=== PATIENT | female | born 1995 | race Caucasian/White ===

== ENCOUNTER 2016-10-21 11:39 | Emergency (ER) | payer OTHER ==
[2016-10-21 11:42] VITALS: TEMP 98.2; BMI 22.8
[2016-10-21 12:45] LABS: BASOPHIL 0.4 % (0-2.0); EOSINOPHIL 0.4 % (0-4.5); MCHC 34.9 g/dl (32.0-36.0); MEAN CELL VOLUME 91.8 fl (80-96); MEAN PLT VOLUME 7.8 fl (7.5-11.1); NEUTROPHILS 77.7 % (42.8-82.8); PLATELET COUNT 197 K/MM3 (134-434); WHITE BLOOD COUNT 8.7 K/mm3 (4.0-10.0)
[2016-10-21 12:47] LABS: URINE APPEARANCE CLEAR; URINE BILIRUBIN NEGATIVE (NEGATIVE); URINE BLOOD NEGATIVE (NEGATIVE); URINE COLOR YELLOW; URINE GLUCOSE (UA) NEGATIVE (NEGATIVE); URINE KETONE NEGATIVE (NEGATIVE); URINE NITRITE NEGATIVE (NEGATIVE); URINE PROTEIN NEGATIVE (NEGATIVE); URINE UROBILINOGEN NEGATIVE E.U./dl (0.2-1.0)
--- NOTE | 2016-10-21 12:53 | PDOC ---
History of Present Illness - General History Source: Patient Exam Limitations: No Limitations - History of Present Illness Initial Comments: CHIEF COMPLAINT: 21 y/o , approximately 18 week female with LMP of 06/15/16 c/o left sided abdominal pain x 3 days. HISTORY OF PRESENT ILLNESS: The patient describes the pain as constant. She denies f/c, n/v/d, CP, SOB, back pain, hematuria, dysuria, abnormal vaginal discharge, vaginal bleeding. UNDERWRITER SOLICITATION DIRECTOR is Dr. Karina Ovalles Vital signs on arrival are within normal limits. REVIEW OF SYSTEMS: GENERAL/CONSTITUTIONAL: No fever/chills. No weakness. No weight change. HEAD, EYES, EARS, NOSE AND THROAT: No change in vision. No ear pain or discharge. No sore throat. CARDIOVASCULAR: No chest pain or shortness of breath. RESPIRATORY: No cough, wheezing, or hemoptysis. GASTROINTESTINAL: +left sided abdominal pain. No nausea, vomiting, diarrhea. GENITOURINARY: No dysuria, frequency, or change in urination. MUSCULOSKELETAL: No joint or muscle swelling or pain. No neck or back pain. SKIN: No rash or easy bruising. NEUROLOGIC: No headache, vertigo, loss of consciousness, or loss of sensation. PHYSICAL EXAM: GENERAL: The patient is awake, alert, and fully oriented, in no acute distress. She is well appearing and ambulatory, in NAD or obvious discomfort. HEAD: Normal with no signs of trauma. ENT: Pupils equal, round and reactive to light, extraocular movements intact, sclera anicteric, conjunctiva clear. Neck supple. LUNGS: Clear to auscultation bilaterally. Normal excursion. No respiratory distress or use of accessory muscles. CV: RRR, S1/S2, no MRG. Cap refill < 2 sec. ABDOMEN: Soft, non-distended. TTP of left flank. No rebound, guarding or rigidity. BACK: No CVA TTP b/l. VAGINAL: DEFERRED. EXTREMITIES: Normal range of motion, no edema. NEUROLOGICAL: Normal speech, normal gait. CN II-XII grossly intact. PSYCH: Normal mood, normal affect. SKIN: Warm, dry, normal turgor, no rashes or lesions noted. <Maria Deluca - Last Filed: 10/21/16 14:31> <Dennis Benton - Last Filed: 10/22/16 09:53> - General Chief Complaint: Pain Stated Complaint: ABD PAIN (18 WKS ) Time Seen by Provider: 10/21/16 12:06 Past History - Past Medical History Asthma: No Cancer: No Cardiac Disorders: No Diabetes: No HTN: No Seizures: No Thyroid Disease: No - Surgical History Abdominal Surgery: No Appendectomy: No Cardiac Surgery: No - Reproductive History Is Patient Now?: Yes (#): 2 Para: 1 Ectopic : No Therapeutic (s) & number: No - Psycho/Social/Smoking Cessation Hx Anxiety: No Suicidal Ideation: No Smoking Status: No Smoking History: Never smoked Have you smoked in the past 12 months: No Number of Cigarettes Smoked Daily: 0 Hx Alcohol Use: No Drug/Substance Use Hx: No Substance Use Type: None Hx Substance Use Treatment: No <Maria Deluca - Last Filed: 10/21/16 14:31> <Dennis Benton - Last Filed: 10/22/16 09:53> - Past Medical History Allergies/Adverse Reactions: Allergies Allergy/AdvReac Type Severity Reaction Status Date / Time No Known Allergies Allergy Verified 10/21/16 11:42 Home Medications: Ambulatory Orders Vits #93/Iron Fum/FA [ Formula Tablet] 1 each PO DAILY *Physical Exam - Vital Signs Last Vital Signs Temp Pulse Resp BP Pulse Ox 98.2 F 65 20 104/54 100 10/21/16 11:40 10/21/16 11:40 10/21/16 11:40 10/21/16 11:40 10/21/16 11:40 <Maria Deluca - Last Filed: 10/21/16 14:31> - Vital Signs Last Vital Signs Temp Pulse Resp BP Pulse Ox 98.2 F 71 16 95/55 100 10/21/16 11:40 10/21/16 14:57 10/21/16 14:57 10/21/16 14:57 10/21/16 14:57 <Dennis Benton - Last Filed: 10/22/16 09:53> ED Treatment Course - LABORATORY CBC & Chemistry Diagram: 10/21/16 12:35 10/21/16 12:35 - ADDITIONAL ORDERS Additional order review: 10/21/16 12:35 RBC 3.85 MCV 91.8 MCHC 34.9 RDW 14.0 MPV 7.8 Neutrophils % 77.7 Lymphocytes % 17.1 D Monocytes % 4.4 Eosinophils % 0.4 Basophils % 0.4 - RADIOLOGY Radiology Studies Ordered: Category Date Time Status KIDNEY / RENAL US [US] Stat Ultrasound 10/21/16 12:27 Ordered LIMITED US [US] Stat Ultrasound 10/21/16 12:27 Ordered <Maria Deluca - Last Filed: 10/21/16 14:31> - LABORATORY CBC & Chemistry Diagram: 10/21/16 12:35 10/21/16 12:35 - ADDITIONAL ORDERS Additional order review: 10/21/16 12:35 RBC 3.85 MCV 91.8 MCHC 34.9 RDW 14.0 MPV 7.8 Neutrophils % 77.7 Lymphocytes % 17.1 D Monocytes % 4.4 Eosinophils % 0.4 Basophils % 0.4 <Dennis Benton - Last Filed: 10/22/16 09:53> Medical Decision Making - Medical Decision Making A/P: 21 y/o afebrile, approximately 18 week female with left sided abdominal pain x 3 days. Plan is as follows: 1. Labs 2. UA/culture 3. Kidney ultrasound 4. ultrasound Kidney ultrasound IMPRESSION: Unremarkable exam. ultrasound IMPRESSION: Single, live, intrauterine gestation of 18 weeks 5 days. Labs unremarkable. UA with trace leuks and 1 WBC. Will not treat for UTI. Spoke with Lieutenant Colonel, Karina Ovalles, and discussed all results. She suggested the patient call her tomorrow to schedule follow up appointment within 2 weeks. Gave the patient all of her results. Suggested she take Tylenol for pain if needed and drink plenty of fluids. Instructed the patient to return to the ER with any worsening or concerning symptoms, especially vaginal bleeding. The patient verbalizes understanding of all instructions, has no further questions and is awaiting discharge. <Maria Deluca - Last Filed: 10/21/16 14:31> - Medical Decision Making The patient was seen and evaluated in conjunction with CHEKO Deluca under my direct supervision, ancillary studies were reviewed. I agree with the plan as outlined by CHEKO Deluca . <Dennis Benton - Last Filed: 10/22/16 09:53> *DC/Admit/Observation/Transfer <Maria Deluca - Last Filed: 10/21/16 14:31> <Dennis Benton - Last Filed: 10/22/16 09:53> Diagnosis at time of Disposition: Abdominal pain affecting , Round ligament pain - Discharge Dispostion Disposition: HOME Condition at time of disposition: Good - Referrals Referrals: Karina Ovalles MD [Primary Care Provider] - - Patient Instructions Printed Discharge Instructions: DI for -- Discomforts and Remedies Additional Instructions: Discharge Instructions: -All of your labs and imaging studies are normal -I spoke with Karina Ovalles and she believes you are having round ligament pain , which is normal in . -MELI Ovalles would like you to call the office tomorrow to schedule a follow up appointment -You can take Tylenol for pain if needed -Return to the ER immediately with any worsening or concerning symptoms, especially vaginal bleeding. Instrucciones de heriberto: -Todos tus laboratorios y estudios de imagen son normales -He hablado con Bienvenido Ovalles y hernandez inés que est teniendo dolor de ligamento jose francisco, que es normal en el embarazo. -MELI Ovalles desea que usted llame a la oficina maana para programar connie saundra de seguimiento -Usted puede kelle Tylenol para el dolor si es necesario - Volver a la ifeoma de emergencias inmediatamente con cualquier empeoramiento o s ntomas relacionados, especialmente el sangrado vaginal. Print Language: CITIZEN OF [place]
[2016-10-21 13:07] LABS: URINE LEUK ESTERASE TRACE (NEGATIVE)
[2016-10-21 13:16] LABS: ALBUMIN 3.3 g/dl (3.4-5.0); ANION GAP 10 (8-16); BILIRUBIN,TOTAL 0.3 mg/dL (0.2-1.0); CALCIUM 8.9 mg/dL (8.5-10.1); CO2 25 mmol/L (21-32); CREATININE 0.5 mg/dL (0.55-1.02); GLUCOSE,RANDOM 75 mg/dL (74-106); SGOT/AST 15 U/L (15-37); SGPT/ALT 17 U/L (12-78); TOT PROT 7.1 g/dl (6.4-8.2)
[2016-10-21 13:17] LABS: ALK PHOS 72 U/L (45-117)
[2016-10-21 14:06] LABS: URINE BACTERIA RARE /hpf (NONE SEEN); URINE MUCUS RARE; URINE RBC 1 /hpf (0-3); URINE WBC 1 /hpf (3-5)
[2016-10-21 14:59] VITALS: BP 95/55; PULSE 71
== END 2016-10-21 14:59 | disposition home or self-care (01) ==
LOC: JER 11:39
DX: O26.892 Other specified pregnancy related conditions, second trimester (principal); Z3A.18 18 weeks gestation of pregnancy; R10.9 Unspecified abdominal pain; N80.3 Endometriosis of pelvic peritoneum
CPT/HCPCS: 36415; 76775-TC; 76815-TC; 80053; 81003; 81015; 85025; 86850; 86900; 86901; 87086; 99283-25

== ENCOUNTER 2017-03-19 20:00 | Inpatient (IN) | payer OTHER ==
[~2017-03-19 20:00] MED LIST: DEXTROSE 5%-LACTATED RINGERS 1,000 ML IV SCH
[2017-03-19 20:49] LABS: BASO % 0.2 % (0-2.0); EOS % 0.4 % (0-4.5); HEMATOCRIT 40.8 % (32.4-45.2); HEMOGLOBIN 14.1 GM/dL (10.7-15.3); LYMPH % 23.6 % (8-40); MCH 31.6 pg (25.7-33.7); MCHC 34.5 g/dl (32.0-36.0); MEAN CELL VOLUME 91.7 fl (80-96); MEAN PLT VOLUME 10.1 fl (7.5-11.1); MONO % 6.4 % (3.8-10.2); NEUT % 69.4 % (42.8-82.8); PLATELET COUNT 164 K/MM3 (134-434); RBC 4.46 M/mm3 (3.60-5.2); RDW 14.9 % (11.6-15.6); WHITE BLOOD COUNT 6.6 K/mm3 (4.0-10.0)
[2017-03-19 21:02] LABS: INR 0.93 (0.82-1.09); PROTHROMBIN TIME (PATIENT) 10.5 SEC (9.98-11.88)
[2017-03-19 21:04] LABS: ACTIVATED PTT 30.3 SECONDS (26.9-34.4)
[2017-03-19 21:19] VITALS: BMI 32.1
[2017-03-19 21:20] LABS: ANION GAP 9 (8-16); BLOOD UREA NITROGEN 13 mg/dL (7-18); CALCIUM 8.5 mg/dL (8.5-10.1); CHLORIDE 109 mmol/L (98-107); CO2 19 mmol/L (21-32); GLUCOSE,RANDOM 86 mg/dL (74-106); POTASSIUM 4.6 mmol/L (3.5-5.1); SODIUM 137 mmol/L (136-145)
[2017-03-19 22:24] LABS: PLATELET ESTIMATE ADEQUATE
[2017-03-19] MEDS ORDERED: BUTORPHANOL TARTRATE 1 MG/ML VIAL IVPUSH PRN (22:53)
[2017-03-19] MEDS ORDERED: PROMETHAZINE HCL 25 MG/1 ML VIAL IVPUSH PRN (22:53)
--- NOTE | 2017-03-19 22:53 | HP ---
Past Medical History - Primary Care Physician PCP:: Smith Bowles - Admission Chief Complaint: 39.3 weeks, labor History of Present Illness: 22 yo f g 2 p1001 edc by sono 03/22/17 in labor, cx 4 cm, 80 vx -2 mi, contraction regular History Source: Patient Limitations to Obtaining History: Language Barrier - Past Medical History ...: 2 ...Para: 1 ...Term: 1 ...: 0 ...Spon : 0 ...Induced : 0 ...Multiple Gestation: 0 ...LMP: 06/15/16 ... Weeks Gestation by Dates: 39.3 ...EDC by Dates: 03/22/17 ...EDC by Sono: 03/22/17 - Past Surgical History Hx Myomectomy: No Hx Transabdominal Cerclage: No - Smoking History Smoking history: Never smoked Have you smoked in the past 12 months: No Aproximately how many cigarettes per day: 0 - Alcohol/Substance Use Hx Alcohol Use: No - Social History Usual Living Arrangement: Yes: With Spouse History of Recent Travel: No Home Medications - Allergies Allergies/Adverse Reactions: Allergies Allergy/AdvReac Type Severity Reaction Status Date / Time No Known Allergies Allergy Verified 10/21/16 11:42 - Home Medications Home Medications: Ambulatory Orders Vits #93/Iron Fum/FA [ Formula Tablet] 1 each PO DAILY Ferrous Sulfate [Feosol] 325 mg PO DAILY 03/19/17 Review of Systems - Review of Systems Constitutional: reports: No Symptoms Eyes: reports: No Symptoms HENT: reports: No Symptoms Neck: reports: No Symptoms Cardiovascular: reports: No Symptoms Respiratory: reports: No Symptoms Gastrointestinal: reports: No Symptoms Genitourinary: reports: No Symptoms Breasts: reports: No Symptoms Reported Musculoskeletal: reports: No Symptoms Integumentary: reports: No Symptoms Neurological: reports: No Symptoms Endocrine: reports: No Symptoms Hematology/Lymphatic: reports: No Symptoms Psychiatric: reports: No Symptoms Physical Exam - Maternity Vital Signs: Vital Signs Temperature 98.1 F 03/19/17 22:00 Pulse Rate 69 03/19/17 22:00 Respiratory Rate 20 03/19/17 22:00 Blood Pressure 129/73 03/19/17 22:00 O2 Sat by Pulse Oximetry (%) Constitutional: Yes: Well Nourished, No Distress, Calm Eyes: Yes: WNL, Conjunctiva Clear, EOM Intact HENT: Yes: WNL, Atraumatic, Normocephalic Neck: Yes: WNL, Supple, Trachea Midline Cardiovascular: Yes: WNL, Regular Rate and Rhythm Breast(s): Yes: WNL - Abdominal Exam/OB Fundal Height: 40 Number of Fetuses: Single Presentation: Vertex Contractions: Yes Regularity: Regular Intensity: Mod/Strong Monitor Mode: External Heart Rate Location: [facility] Category: I Accelerations: Uniform Decelerations: None - Vaginal Exam/OB Speculum Exam: No Dilatation (cm): 4 cm Effacement (%): 80 Amniotic Membrane Status: Intact Presentation: Vertex/Position Station: -2 - Physical Exam Musculoskeletal: Yes: WNL Edema: Yes Edema: LLE: Trace, RLE: Trace Integumentary: Yes: WNL Deep Tendon Reflex Grade: Normal +2 ...Motor Strength: WNL Psychiatric: Yes: WNL - Labs Lab Results: CBC, BMP 03/19/17 20:30 03/19/17 20:30 Hemorrhage Risk Assessment - Risk Factors Medium Risk Factors: Yes: None High Risk Factors: Yes: None Risk Score: 1 Risk Level: Medium Risk Problem List - Problems (1) with 39 completed weeks gestation Code(s): Z3A.39 - 39 WEEKS GESTATION OF (2) Labor established Code(s): AWI2184 - Assessment/Plan admit for vaginal delivery, heart management
[2017-03-20] MEDS ORDERED: BUTORPHANOL TARTRATE 1 MG/ML VIAL ONE ×3 (00:01→03:14)
[2017-03-20] MEDS ORDERED: PROMETHAZINE HCL 25 MG/1 ML VIAL ONE ×2 (00:01→03:14)
[2017-03-20] MEDS ORDERED: OXYTOCIN 15 UNITS/ LR 250 ML 15 UNIT/250 ML INFUS.BAG IVPB ONE (00:57)
[2017-03-20] MEDS ORDERED: OXYTOCIN 15 UNITS/ LR 250 ML 15 UNIT/250 ML INFUS.BAG IVPB SCH (01:00)
[2017-03-20] MEDS ORDERED: OXYTOCIN 20 UNITS in 0.9% NS 20 UNIT/1,000 ML INFUS.BAG IV ONE (02:55)
[2017-03-20] MEDS ORDERED: BUTORPHANOL TARTRATE 1 MG/ML VIAL IVPUSH ONE (03:00)
[2017-03-20] MEDS ORDERED: PROMETHAZINE HCL 25 MG/1 ML VIAL IVPUSH ONE (03:00)
[2017-03-20] MEDS ORDERED: LIDOCAINE HCL 1% PRESERVATIVE FREE - 30ML VIAL ONE (03:31)
[2017-03-20] MEDS ORDERED: BENZOCAINE 28 GM HEMORRHOIDAL OINTMENT TP PRN (03:42)
[2017-03-20] MEDS ORDERED: BENZOCAINE 20% 57 GM BOTTLE TP PRN (03:42)
[2017-03-20] MEDS ORDERED: oxyCODONE HCL 5 MG TABLET PO PRN (03:42)
[2017-03-20] MEDS ORDERED: WITCH HAZEL 50% (TUCKS) 40 PAD/JAR PAD TP PRN (03:42)
[2017-03-20] MEDS ORDERED: ACETAMINOPHEN 325 MG TABLET (FP) PO PRN (03:42)
[2017-03-20] MEDS ORDERED: IBUPROFEN 600 MG TABLET (FP) PO PRN (03:42)
[2017-03-20] MEDS ORDERED: BISACODYL 10 MG SUPP.RECT RC PRN (03:42)
[2017-03-20] MEDS ORDERED: METHYLERGONOVINE MALEATE 0.2 MG/1 ML AMP IM PRN (03:42)
[2017-03-20] MEDS ORDERED: D5W-LR W/ 20 UNITS OXYTOCIN 20 UNIT/1,000 ML INFUS.BAG IV SCH (03:45)
[2017-03-20] MEDS: SODIUM CHLORIDE 1,000 ML with OXYTOCIN 20 UNIT IV SCH (08:00)
[2017-03-20] MEDS ORDERED: FLU VACC QS2017-18 36MOS UP/PF 60 MCG/0.5 ML SYRINGE IM ONE (09:00)
[2017-03-20] MEDS: PRENATAL VITAMINS W/ FOLIC ACID TABLET (FP) PO SCH (09:43)
[2017-03-20] MEDS: FERROUS SO4 325 MG TABLET (FP) PO SCH ×2 (09:43→21:21)
[2017-03-20] MEDS ORDERED: FERROUS SO4 325 MG TABLET (FP) PO SCH (10:00)
[2017-03-20] MEDS ORDERED: PRENATAL VITAMINS W/ FOLIC ACID TABLET (FP) PO SCH (10:00)
[2017-03-21 06:27] LABS: BASO % 0.2 % (0-2.0); EOS % 1.2 % (0-4.5); HEMATOCRIT 37.2 % (32.4-45.2); HEMOGLOBIN 12.3 GM/dL (10.7-15.3); LYMPH % 31.7 % (8-40); MCHC 33.1 g/dl (32.0-36.0); MEAN CELL VOLUME 93.5 fl (80-96); MEAN PLT VOLUME 9.4 fl (7.5-11.1); NEUT % 59.9 % (42.8-82.8); PLATELET COUNT 121 K/MM3 (134-434); RBC 3.98 M/mm3 (3.60-5.2)
[2017-03-21] MEDS: FERROUS SO4 325 MG TABLET (FP) PO SCH ×2 (09:09→21:15)
[2017-03-21] MEDS: PRENATAL VITAMINS W/ FOLIC ACID TABLET (FP) PO SCH (09:09)
[2017-03-21] MEDS ORDERED: DIPHTH,PERTUSS(ACELL),TET 0.5 ML DISP.SYRIN IM ONE (10:00)
--- NOTE | 2017-03-21 12:33 | PN ---
Progress Note (short form) - Note Progress Note: ppd1 doing well, no c/o voids ok CBC, BMP 03/21/17 06:05 03/19/17 20:30 Last Vital Signs Temp Pulse Resp BP Pulse Ox 98.1 F 60 20 122/64 03/21/17 07:15 03/21/17 07:15 03/21/17 07:15 03/21/17 07:15 uterus firm, non tender, no cva lochia mild no calf tenderness plan ambulate , d/c home in am Problem List - Problems (1) with 39 completed weeks gestation Code(s): Z3A.39 - 39 WEEKS GESTATION OF (2) Labor established Code(s): EBN7023 -
[2017-03-21 20:44] VITALS: PULSE 68
[2017-03-21] MEDS ORDERED: SENNOSIDES/DOCUSATE COMBO (SENNA PLUS) TABLET (UD) PO PRN (22:00)
--- NOTE | 2017-03-22 08:14 | DS ---
Physical Exam-BAND MASTER Vital Signs: Vital Signs Temperature 98.0 F 03/21/17 20:43 Pulse Rate 68 03/21/17 20:43 Respiratory Rate 20 03/21/17 20:43 Blood Pressure 116/64 03/21/17 20:43 O2 Sat by Pulse Oximetry (%) Constitutional: Yes: Well Nourished, No Distress, Calm Eyes: Yes: WNL, Conjunctiva Clear, EOM Intact HENT: Yes: WNL, Atraumatic, Normocephalic Neck: Yes: WNL, Supple, Trachea Midline Cardiovascular: Yes: WNL, Regular Rate and Rhythm Respiratory: Yes: WNL, Regular, CTA Bilaterally Gastrointestinal: Yes: WNL ...Rectal Exam: Yes: WNL Renal/: Yes: WNL External Genitalia: Yes: Normal ....Post : Yes: Uterus firm, Uterus non-tender, Slight lochia rubra Breast(s): Yes: WNL Musculoskeletal: Yes: WNL Extremities: Yes: WNL Edema: No Integumentary: Yes: WNL Neurological: Yes: WNL, Alert, Oriented ...Motor Strength: WNL Psychiatric: Yes: WNL, Alert, Oriented Labs: CBC, BMP 03/21/17 06:05 03/19/17 20:30 Delivery - Delivery Vaginal Delivery: Spontaneous (no complication) Type of Anesthesia: None Episiotomy/Laceration: 1st degree EBL (cc): 300 Delivery, Single - Stages of Labor Date 1st Stage Initiatied: 03/19/17 Time 1st Stage Initiated: 15:00 Date 2nd Stage Initiated: 03/20/17 Time 2nd Stage Initiated: 03:20 Date of Delivery: 03/20/17 Time of Delivery: 03:27 Time Placenta Delivered: 03:30 Placenta: Yes: Spontaneous - Condition of Med Spec/Spin Table Operator Present: No Gender: Female Weight: 8 lb 1 oz Position: Left, OA Total Hours ROM (Hrs/Mins): 40mins - 1 Minute Total Score: 9 5 Minutes Total Score: 9 - Feeding Plan Initial Plan: Elected not to breastfeed exclusively throughout hospitalization Discharge Summary Reason For Visit: ADMIT LABOR Current Active Problems Labor established (Acute) with 39 completed weeks gestation (Acute) Procedures: Principal: Hospital Course: no complication Condition: Good - Instructions Diet, Activity, Other Instructions: regular diet, follow up [facility] 4 weeks Referrals: Smith Bowles MD [Staff Physician] - Disposition: HOME - Home Medications Comprehensive Discharge Medication List: Ambulatory Orders Vits #93/Iron Fum/FA [ Formula Tablet] 1 each PO DAILY Ferrous Sulfate [Feosol] 325 mg PO DAILY 03/19/17 Ibuprofen [Motrin -] 600 mg PO TID #21 tablet 03/21/17
[2017-03-22 09:13] VITALS: BP 112/52; TEMP 97.2
[2017-03-22] MEDS: PRENATAL VITAMINS W/ FOLIC ACID TABLET (FP) PO SCH (09:25)
[2017-03-22] MEDS: SODIUM CHLORIDE 1,000 ML with OXYTOCIN 20 UNIT IV SCH (09:25)
[2017-03-22] MEDS: FERROUS SO4 325 MG TABLET (FP) PO SCH (09:25)
== END 2017-03-22 14:55 | disposition home or self-care (01) | DRG 560 ==
LOC: JLDR 20:00 → J3W 03-20 05:28
PROVIDERS: ADMIT Obstetrics & Gynecology; ATTEND Obstetrics & Gynecology
PROC: 10E0XZZ Delivery of Products of Conception, External Approach (ICD-10-PCS; principal; 2017-03-20)
PROC: 0W8NXZZ Division of Female Perineum, External Approach (ICD-10-PCS; 2017-03-20)
PROC: 0HQ9XZZ Repair Perineum Skin, External Approach (ICD-10-PCS; 2017-03-20)
DX: O70.0 First degree perineal laceration during delivery (principal); Z3A.39 39 weeks gestation of pregnancy; Z37.0 Single live birth
CPT/HCPCS: 36415; 59409; 80048; 85025; 85610; 85730; 86593; 86850; 86900; 86901; 90686; 90715; G0008

== ENCOUNTER 2017-04-14 11:35 | Emergency (ER) | payer OTHER ==
[2017-04-14 11:40] VITALS: BP 124/64; PULSE 82; TEMP 98.8; BMI 25.7
[2017-04-14] MEDS ORDERED: ACETAMINOPHEN 500 MG TABLET (FP) PO ONE (12:48)
--- NOTE | 2017-04-14 12:49 | PDOC ---
History of Present Illness - General Chief Complaint: Cold Symptoms Stated Complaint: FEVER Time Seen by Provider: 04/14/17 12:15 History Source: Patient Exam Limitations: No Limitations - History of Present Illness Initial Comments: 04/14/17 12:44 This is a 22-year-old female without significant past medical history who presents to the emergency department with headaches, rhinorrhea, body aches, fever for the past one day. Patient states she has had no sick contacts but does have a 20-day-old at home. Patient is currently breast-feeding. She denies abdominal pain nausea vomiting. Past History - Past Medical History Allergies/Adverse Reactions: Allergies Allergy/AdvReac Type Severity Reaction Status Date / Time No Known Allergies Allergy Verified 04/14/17 11:40 Home Medications: Ambulatory Orders NK [No Known Home Medication] 04/14/17 Asthma: No Cancer: No Cardiac Disorders: No COPD: No Diabetes: No HTN: No Seizures: No Thyroid Disease: No - Surgical History Abdominal Surgery: No Appendectomy: No Cardiac Surgery: No - Reproductive History (#): 2 Para: 1 Ectopic : No Therapeutic (s) & number: No - Suicide/Smoking/Psychosocial Hx Smoking Status: No Smoking History: Never smoked Have you smoked in the past 12 months: No Number of Cigarettes Smoked Daily: 0 Hx Alcohol Use: No Drug/Substance Use Hx: No Substance Use Type: None Hx Substance Use Treatment: No Review of Systems - Review of Systems Able to Perform ROS?: Yes Is the patient limited Moldovan proficient: No Constitutional: Yes: See HPI HEENTM: Yes: See HPI Respiratory: No: Symptoms reported Cardiac (ROS): No: Symptoms Reported ABD/GI: No: Symptoms Reported : No: Symptoms Reported Musculoskeletal: Yes: See HPI Integumentary: No: Symptoms Reported Neurological: No: Symptoms reported Endocrine: No: Symptoms Reported Hematologic/Lymphatic: No: Symptoms Reported *Physical Exam - Vital Signs Last Vital Signs Temp Pulse Resp BP Pulse Ox 98.8 F 82 20 124/64 99 04/14/17 11:36 04/14/17 11:36 04/14/17 11:36 04/14/17 11:36 04/14/17 11:36 - Physical Exam General Appearance: Yes: Appropriately Dressed. No: Apparent Distress HEENT: positive: ZAK, Normal Voice, TMs Normal, Pharynx Normal, Rhinorrhea Neck: positive: Trachea midline, Supple Respiratory/Chest: positive: Chest Tender (left axillary. No masses, crepitus or deformity present.), Lungs Clear. negative: Normal Breath Sounds Cardiovascular: positive: Regular Rhythm, Regular Rate. negative: Murmur Gastrointestinal/Abdominal: positive: Normal Bowel Sounds, Soft. negative: Tender Musculoskeletal: positive: Normal Inspection. negative: CVA Tenderness Extremity: positive: Normal Inspection Integumentary: positive: Normal Color, Dry, Warm Neurologic: positive: software support technician II-XII NML intact, Fully Oriented, Alert, Normal Mood/ Affect, Normal Response, Motor Strength 08/14 Medical Decision Making - Medical Decision Making 04/14/17 12:46 A/P: This is a 22-year-old female without significant past medical history who presents to the emergency department with headaches, rhinorrhea, body aches, fever for the past one day. Patient states she has had no sick contacts but does have a 20-day-old infant at home. Patient is currently breast-feeding. She denies abdominal pain nausea vomiting. Examination of the oropharynx is clear without erythema or exudates. No tenderness over maxillary or frontal sinuses. TMs clear pearly avelar with appropriate light reflex. External auditory canals within normal limits. There is no cervical lymphadenopathy present. Lungs clear to auscultation bilaterally. Regular rate and rhythm. No murmur, rub or gallop auscultated. Abdomen soft nontender nondistended. Differential diagnosis influenza versus other viral illness. I will send nasopharyngeal swabs for influenza testing. I will give the patient 1 g of Tylenol by mouth now. His mother is positive for influenza I will contact her newborns pulp mill team leader for appointments to bring child or today to get prophylactic dosing on Tamiflu. 04/14/17 13:14 Influenza testing was negative. I will discharge the patient with strict instructions to bring child to pulp mill team leader at first sign of illness. I discussed the physical exam findings, ancillary test results and final diagnoses with the patient. I answered all of the patient's questions. The patient was satisfied with the care received and felt comfortable with the discharge plan and treatment plan. The patient will call her doctor within 96 hours to arrange follow-up and will return to the Emergency Department with any new, persistant or worsening symptoms. *DC/Admit/Observation/Transfer Diagnosis at time of Disposition: URI (upper respiratory infection) Qualifiers: URI type: unspecified URI Qualified Code(s): J06.9 - Acute upper respiratory infection, unspecified - Discharge Dispostion Disposition: HOME Condition at time of disposition: Stable Admit: No - Referrals - Patient Instructions Printed Discharge Instructions: DI for Viral Upper Respiratory Infection -- Adult Additional Instructions: Rest, drink lots of fluids: Teas, water, soups, Pedialyte Saltwater gargles Steamy showers/seem to face break up mucus Avoid contact with others until fevers and cough resolved Lots of handwashing and good hygiene Continue [id number] medications for symptomatic relief Tylenol or Motrin for fever and pain Followup with private physician in one to 2 days as needed Return to emergency department for worsened symptoms, fevers, dehydration - Post Discharge Activity
[2017-04-14] MEDS ORDERED: ACETAMINOPHEN 500 MG TABLET (FP) ONE (12:54)
== END 2017-04-14 13:21 | disposition home or self-care (01) ==
LOC: JERFT 11:35
DX: J06.9 Acute upper respiratory infection, unspecified (principal); B97.89 Other viral agents as the cause of diseases classified elsewhere
CPT/HCPCS: 87804; 99281-25